=== PATIENT | male | born 1945 | race Caucasian/White ===

== ENCOUNTER 2024-04-21 04:52 | Inpatient (IN) | payer MEDICARE ==
[~2024-04-21] VITALS: Ht 177.8 cm; Wt 68.6 kg
[2024-04-21 06:01] LABS: BASO # 0.1 K/mm3 (0.0-0.2); BASO % 0.6 % (0.0-2.0); EOS # 0.1 K/mm3 (0.0-0.7); EOS % 0.6 % (0.0-4.0); GRAN # 7.6 K/mm3 (1.4-6.5); GRAN % 77.4 % (42.2-75.2); HEMATOCRIT 44.7 % (42.0-52.0); HEMOGLOBIN 15.7 g/dl (13.5-18.0); LYMPH # 1.2 K/mm3 (1.2-3.4); LYMPH % 12.6 % (20.0-51.0); MEAN CELL VOLUME 89 fl (80.0-100.0); MEAN CORPUSCULAR HEMOGLOBIN 31 pg (27-31); MEAN CORPUSCULAR HGB CONC 35 g/dl (33.0-37.0); MEAN PLATELET VOLUME 10.8 fl (7.4-10.4); MONO # 0.8 K/mm3 (0.1-0.6); MONO % 8.4 % (1.7-9.3); PLATELET COUNT 159 K/mm3 (130-400); RED BLOOD COUNT 5.01 M/mm3 (4.20-5.60); REDCELL DISTRIBUTION WIDTH-CV 12.7 % (11.5-14.5)
[2024-04-21 06:12] LABS: COLLECTION METHOD CLEAN CATCH
[2024-04-21 06:18] LABS: ALBUMIN 3.9 g/dL (3.4-4.8); C-REACTIVE PROTEIN 0.1 mg/dL (0.00-0.50); POTASSIUM 3.4 mEq/L (3.5-4.5); TOTAL PROTEIN 7.2 g/dl (6.2-8.1)
[2024-04-21 06:22] LABS: URINE APPEARANCE CLEAR (CLEAR/HAZY); URINE BLOOD NEGATIVE (NEGATIVE); URINE COLOR YELLOW (YELLOW); URINE GLUCOSE NEGATIVE (NEGATIVE); URINE KETONE 1+ (NEGATIVE); URINE NITRATE NEGATIVE (NEGATIVE); URINE PROTEIN(semi-quant) NEGATIVE (BEGATIVE); URINE UROBILINOGEN 0.2 E.U/dL (0.2-1.0)
[2024-04-21] MEDS ORDERED: Iohexol 300 - 100 ML VIAL IV ONE (06:36)
[2024-04-21] MEDS ORDERED: NS 50 ML IV SCH (06:36)
[2024-04-21] MEDS ORDERED: cefTRIAXone 1 G in Water For Injection,Sterile 10 ML IV ONE (06:45)
[2024-04-21] MEDS ORDERED: NS 1,000 ML IV ONE (06:45)
[2024-04-21] MEDS ORDERED: metroNIDAZOLE 100 ML IV ONE (07:15)
--- NOTE | 2024-04-21 08:55 | NUR ---
pt transferred to room from ED by wheelchair, daughter at bedside. vss. pt denies pain and nausea. pt alert and oriented to person. admission assessment complete to the best of our ability due to pts confusion and daughter answering the questions. pts is to bring med list for our records. INT to left forearm. fall precautions in place. oriented pt to room. no needs at this time. call light in reach.
[2024-04-21 09:03] VITALS: BP 118/76; PULSE 92; TEMP 97.5
[2024-04-21] MEDS ORDERED: KEPPRA 500MG500 MG PO (09:52)
[2024-04-21] MEDS ORDERED: WIXELA 100-501 EACH IH (09:52)
[2024-04-21] MEDS ORDERED: ALTACE 1.25MG1.25 MG PO (09:53)
[2024-04-21] MEDS ORDERED: HCTZ12.5TAB PO (09:53)
[2024-04-21] MEDS ORDERED: PROAIR HFA0.09 MG/AC IH (10:22)
[2024-04-21] MEDS ORDERED: SINGULAIR 110 MG/TAB PO (10:23)
[2024-04-21] MEDS ORDERED: BENTYL 20MG20 MG/TAB PO (10:23)
[2024-04-21] MEDS ORDERED: REVATIO20 MG PO (10:25)
[2024-04-21] MEDS ORDERED: COMPLETE MULTI1 TAB PO (10:32)
[2024-04-21] MEDS ORDERED: PREDFORTE5ML OD (10:34)
[2024-04-21] MEDS ORDERED: levETIRAcetam 500 MG TAB PO SCH (11:17)
[2024-04-21] MEDS ORDERED: Morphine 4 MG/ML VIAL IV PRN (11:30)
[2024-04-21] MEDS ORDERED: Dicyclomine 10 MG CAP PO PRN (11:30)
[2024-04-21] MEDS ORDERED: Potassium Bicarbonate/Citrate 20 MEQ Effervescent TAB PO ONE (11:30)
[2024-04-21] MEDS ORDERED: Ondansetron 4 MG/2 ML VIAL IV PRN (11:30)
[2024-04-21] MEDS ORDERED: oxyCODONE 5 MG TAB PO PRN (11:30)
[2024-04-21] MEDS ORDERED: 1/2 NS & 20 mEq KCl 1,000 ML IV SCH (11:30)
[2024-04-21] MEDS ORDERED: Acetaminophen 500 MG TAB PO PRN (11:30)
[2024-04-21 12:15] VITALS: BP 119/72; PULSE 59; TEMP 97.7
--- NOTE | 2024-04-21 15:19 | NUR ---
PT ASSESSMENT COMPLETED EARLIER TODAY. PT IS CONFUSED AND TRIES TO GET OUT OF BED- REDIRECTION AND REORIENTATION IS NEEDED MULTIPLE TIMES THROUGHOUT THE DAY. LAYING IN BED WATCHING TV- CALL LIGHT WITHIN REACH. HIS FLUIDS ARE INFUSING AT 75 MLS INTO THE LFA WITHOUT ANY SIGNS OF IV COMPLICATIONS. NO OTHER NEEDS AT THIS TIME.
[2024-04-21 16:45] VITALS: BP 115/76; PULSE 60; TEMP 97.8
[2024-04-21 17:02] VITALS: BP_SYST 115
[2024-04-21] MEDS ORDERED: Fluticasone Furoate 100 MCG/Inhalation INHALER IH SCH ×2 (19:00)
[2024-04-21 20:32] VITALS: BP 133/74; PULSE 69
[2024-04-21 21:00] VITALS: BP_SYST 133
[2024-04-21] MEDS ORDERED: Montelukast 10 MG TAB PO SCH (21:00)
[2024-04-21] MEDS ORDERED: metroNIDAZOLE 100 ML IV SCH (21:00)
--- NOTE | 2024-04-21 21:15 | NUR ---
Pt. had episode of nausea and vomiting. Administered IV meds per MAR, including PRN Zofran, but held PO meds d/t N/V. Pt. is restless and appears to be bracing. Pt. states pain is 9/10. IV morphine administered per MAR by RN. Shift assessment complete. Pt. is oriented to self but seems generally confused. Bowel sounds are hypoactive in all quadrants. However, pt is having loose stools per bedside shift report. All other findings WNL. Pt. is in bed w/ alarm activated and call light in reach.
--- NOTE | 2024-04-21 23:11 | NUR ---
Pt. is confused at this time. Multiple attempts to get out of bed and look through closet in room. Unable to reorient pt.
[2024-04-22] VITALS (7 sets, daily range): BP systolic 107–137; BP diastolic 65–76; PULSE 48–58; TEMP 97.5–98.2
--- NOTE | 2024-04-22 04:46 | NUR ---
Pt. had multiple episodes of confusion throughout shift and is difficult to reorient. Pt. reports nausea has improved since yesterday evening. Pain reported at beginning of shift has remained improved throughout the night as well. Pt. is on room air and ambulates w/ standby assist. Bed alarm is activated and telesitter in place.
[2024-04-22 06:26] LABS: BASO % 0.6 % (0.0-2.0); EOS # 0.1 K/mm3 (0.0-0.7); EOS % 1.2 % (0.0-4.0); GRAN # 3.8 K/mm3 (1.4-6.5); GRAN % 57.6 % (42.2-75.2); HEMATOCRIT 39.2 % (42.0-52.0); LYMPH # 1.9 K/mm3 (1.2-3.4); LYMPH % 28.8 % (20.0-51.0); MEAN CELL VOLUME 89 fl (80.0-100.0); MEAN CORPUSCULAR HEMOGLOBIN 31 pg (27-31); MEAN CORPUSCULAR HGB CONC 34 g/dl (33.0-37.0); MEAN PLATELET VOLUME 10.8 fl (7.4-10.4); MONO # 0.8 K/mm3 (0.1-0.6); MONO % 11.5 % (1.7-9.3); PLATELET COUNT 171 K/mm3 (130-400); RED BLOOD COUNT 4.39 M/mm3 (4.20-5.60); REDCELL DISTRIBUTION WIDTH-CV 13.2 % (11.5-14.5)
[2024-04-22 06:38] LABS: HEMOGLOBIN 13.5 g/dl (13.5-18.0)
[2024-04-22 06:40] LABS: CREATININE, serum 0.88 mg/dL (0.72-1.25); MAGNESIUM 1.6 mg/dL (1.6-2.6); POTASSIUM 4.2 mEq/L (3.5-4.5)
[2024-04-22] MEDS ORDERED: Budesonide Neb Susp 0.5 MG/2 ML AMP IH SCH (07:00)
[2024-04-22] MEDS ORDERED: Formoterol Neb Soln 20 MCG/2 ML UD IH SCH (07:00)
[2024-04-22] MEDS ORDERED: cefTRIAXone 1 G in Water For Injection,Sterile 10 ML IV SCH (08:00)
[2024-04-22] MEDS ORDERED: Magnesium Oxide 400 MG TAB PO SCH (10:36)
--- NOTE | 2024-04-22 10:44 | NUR ---
Pile Driver contacted patient's , Abigail (ph#[phone]) to discuss discharge planning as patient has been confused. Patient lives 30 minutes outside of [place] with his and per her report, he is between primary care providers. Patient was seeing Dr. Matthew until his [facility] and then was transitioned to Dr. Payton. Abigail stated they were not pleased with Dr. Payton's care so they are transitioning to Dr. Reyes at [facility]. Abigail advised Dr. Reyes accepted patient because she sees patient's daughter, Teto as a patient. Patient is supposed to have a new patient appointment in July. Abigail advised they use [facility] for medications and that patient does not use any DME at home, which is why she was surprised patient was a "fall risk" during his hospital stay. 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 Abigail advised patient has a history of seizures but that they are controlled with medicaiton at this time. Abigail also stated patient has "aphasia" but she believes this is due to the medications he takes. Abigail is anxious for patient to come home stating, "I just need my man home". Abigail is coming to visit and is hopeful patient will be released today. SW discussed Home Health with Abigail who advised patient has never had those services and she did not feel he needs them at this time. Abigail reported they have completed DPOA- paperwork but she isn't sure what patient did with his copy. Discharge Plan: Home, declined HH
[2024-04-22] MEDS ORDERED: Magnesium Sulfate 4% 50 ML IV ONE (10:45)
[2024-04-22] MEDS ORDERED: CEFTIN500 MG PO (15:16)
--- NOTE | 2024-04-22 16:50 | NUR ---
DISCHARGE INSTRUCTIONS PROVIDED. PATIENT EDUCATION GIVEN. IV DC'D. FOLLOW UP APPOINTMENTS DISCUSSED. MEDICATIONS REVIEWED. ALL INFORMATION REVIEWED WITH , NO QUESTIONS OR CONCERNS FROM . PATIENT ESCORTED OUT.
== END 2024-04-22 16:52 | disposition home or self-care (01) | DRG 389 ==
LOC: COL.ER 04:52 → SURG 08:16
PROVIDERS: Emergency Medicine; ADMIT Internal Medicine
DX: K56.2 Volvulus (principal); N39.0 Urinary tract infection, site not specified; Z20.822 Contact with and (suspected) exposure to COVID-19; J45.909 Unspecified asthma, uncomplicated; K21.9 Gastro-esophageal reflux disease without esophagitis; I10 Essential (primary) hypertension; Z66 Do not resuscitate; K46.9 Unspecified abdominal hernia without obstruction or gangrene; E83.42 Hypomagnesemia; E87.6 Hypokalemia; G40.909 Epilepsy, unspecified, not intractable, without status epilepticus; F03.90 Unspecified dementia, unspecified severity, without behavioral disturbance, psychotic disturbance, mood disturbance, and anxiety; Z79.899 Other long term (current) drug therapy
CPT/HCPCS: J0696; J1836; J2270; J2405; J3475; J3480; J7030; Q9967